=== PATIENT | female | born 1960 | race Caucasian/White ===

== ENCOUNTER 2019-06-13 17:24 | Observation (INO) | payer BC, SELFPAY ==
[2019-06-12 16:31] VITALS: BMI 25.8
[2019-06-13] VITALS (14 sets, daily range): BP systolic 111–146; BP diastolic 69–89; PULSE 70–103; RESP 16–23; TEMP 36.1–36.9; O2SAT 92–97
[2019-06-13] MEDS: sodium chloride 0.9% 1,000 ML 100 ML IV (07:58)
--- NOTE | 2019-06-13 08:26 | ANES.PREANES ---
Pre-Anesthetic Assessment Pre-Anesthetic Assessment: Height/Weight: Height 1.73 m Weight 77.111 kg Proposed Procedure: Operation Date: 06/13/19 09:05 Proposed Procedures p Laparoscopic Ventral Hernia Repair(Not Applicable) - Dylan Galan MD Social: Social History: Tobacco and No alcohol Exam: Pre-Anes Outpt Exam: alert, oriented x 3, clear to auscultation bilaterally and regular rate & rhythm Airway: Submandibular: WNL Cervical ROM: WNL MP: 1 Dentition: False History/ROS: No significant history except as noted Pulmonary: Pulmonary: COPD GI: GI: GERD and Hiatus hernia Anesthetic Plan: ASA status: III Anesthesia: Anesthesia Evaluation and General Risk of > 500 ml blood loss (7ml/kg in children): No Meds/Allergies Current Medications: Current Medications Generic Name Dose Route Start Last Admin Trade Name Freq PRN Reason Stop Dose Admin Sodium Chloride 1,000 mls @ 100 m ls/hr 06/13/19 06:30 06/13/19 07:58 Sodium Chloride 0.9% IV 06/14/19 06:29 100 mls/hr .Q10H DIANA Administration PFSH Anesthesia PFSH: Medical History (Updated 06/13/19 @ 08:26 by Benigno Segura MD) Cholelith (Acute) Colon polyp (Acute) GERD (gastroesophageal reflux disease) (Acute) Hemorrhoids (Acute) Hiatal hernia (Acute) Periumbilical hernia (Acute) Ventral hernia (Acute) Surgical History (Updated 06/13/19 @ 08:26 by Benigno Segura MD) Hx of cholecystectomy (Acute) Hx of hemorrhoidectomy (Acute) Family History (Updated 06/12/19 @ 16:25 by Nadege Grey) Other No pertinent family history Social History (Updated 06/12/19 @ 16:25 by Nadege Grey) Smoking and tobacco status: current every day smoker Data Anesthesia Cardiac Studies: No Data to Display
--- NOTE | 2019-06-13 08:52 | P.HP_ITS ---
Providers/Chief Complaint Chief Complaint: Lap Ventral Hernia Repair History of Present Illness Romana Vaz is a 58 year old female , patient presented with symptomatic ventral incisional hernia, that would require surgical intervention Review of Systems Const: Reports: body aches; Denies: fever, chills, change in weight, fatigue or malaise Card: Denies: chest pain, palpitations, lightheadedness or shortness of breath on exertion Resp: Denies: shortness of breath or wheezing GI: Denies: abdominal pain, nausea, vomiting, vomiting blood, diarrhea, constipation, bloating, blood in stool or black tarry stool : Denies: difficulty urinating Musc: Denies: back pain Skin/Breast: Reports: skin tenderness Neuro: Denies: frequent falls Psych: Denies: anxiety or depression Endo: Denies: excessive urination Medications/Allergies Home Medications Medication Instructions Recorded Confirmed Last Taken Type esomeprazole magnesium [Nexium] 20 mg PO DAILY 06/12/19 06/12/19 06/13/19 06:00 History Allergies Allergy/AdvReac Type Severity Reaction Status Date / Time sulfamethoxazole Allergy Mild ADR-Agitate Verified 06/12/19 16:29 d valdecoxib Allergy Mild ADR-Agitate Verified 06/12/19 16:29 d PFSH Acute PFSH: Statuses (acute, chronic, etc) shown below reflect problem list status as previously entered and may not be historically accurate Medical History Cholelith (Acute) Colon polyp (Acute) GERD (gastroesophageal reflux disease) (Acute) Hemorrhoids (Acute) Hiatal hernia (Acute) Periumbilical hernia (Acute) Ventral hernia (Acute) Surgical History Hx of cholecystectomy (Acute) Hx of hemorrhoidectomy (Acute) Family History Other No pertinent family history Social History Smoking and tobacco status: current every day smoker Vitals/I&O/Wt Last Vital Signs Temp 97.9 F 06/13/19 08:18 Pulse 91 06/13/19 08:18 Resp 20 H 06/13/19 08:18 BP 146/89 06/13/19 08:18 Pulse Ox 97 06/13/19 08:18 Weight last 48 hrs Weight 170 lb Physical Exam Const: COMMON NORMALS: no apparent distress and oriented x3 GENERAL APPEARANCE: cooperative ORIENTATION/CONSCIOUSNESS: Yes awake, Yes oriented to person, Yes oriented to place and Yes oriented to time HENMT: COMMON NORMALS: normocephalic HEAD & SCALP: normocephalic Eye: COMMON NORMALS: PERRL and no scleral icterus PUPIL: Yes PERRL Lymph: LYMPHATIC: no lymphadenopathy noted Chest: COMMONS NORMALS: inspection of chest normal Resp: COMMON NORMALS: normal respiratory effort and clear to auscultation bilaterally AUSCULTATION: clear to auscultation bilaterally Cardio: COMMON NORMALS: S1 normal heart sound and S2 normal heart sound; negative for no murmurs HEART SOUNDS: S1 normal and S2 normal GI: COMMON NORMALS: soft to palpation; negative for no hepatosplenomegaly INSPECTION: Yes normal to inspection PALPATION: Yes soft, No firm, No tender, No guarding, No rigid, No no hepatosplenomegaly and Yes other (Mid line ventral incisional hernia without complications) Neuro: COMMON NORMALS: oriented x3 SENSORIUM/ORIENTATION: Yes oriented to person, Yes oriented to place and Yes oriented to time Psych: COMMON NORMALS: mental status grossly normal Skin: COMMON NORMALS: no rashes or lesions noted GENERAL SKIN EXAM: no rashes or lesions noted A&P Assessment and plan (1) Ventral hernia: After thorough history physical examination and reviewing the chart and images my personal interpretation, I counseled the patient for laparoscopic possible open ventral incisional hernia repair with mesh placement, indications risks benefits and alternatives were all discussed with the patient, and she did agree to proceed. Informed consent per chart Status: Acute Code(s): K43.9 - Ventral hernia without obstruction or gangrene Attestations Medical Necessity Statement*: Outpatient in the bed Coding Level of Care Code Established Pt Acute Manufacturing Clerk for Chg Fwd Patient Type Established History Problem Focused Exam Problem Focused Medical Decision Making Moderate Complexity Diagnoses Ventral hernia K43.9 Time Spent (min) 10
[2019-06-13] MEDS: sodium chloride 0.9% 1,000 ML 30 ML IV (10:00)
[2019-06-13] MEDS: lidocaine 2% INJ 20 mL INJECTION ×2 (10:26→19:31)
--- NOTE | 2019-06-13 11:22 | SUR.OPER ---
1034 - Pt's (Jose) notified of surgery start via his cell phone
--- NOTE | 2019-06-13 12:20 | SUR.OPER ---
[id number] - Attempted to update Jose on surgery progress and pt status via his cell phone. Unable to reach him at this time
--- NOTE | 2019-06-13 12:43 | PM.OP ---
Operative Report Post-Operative Note: Date of procedure: 06/14/19 Preop Diagnosis: Ventral incisional hernia Post-op diagnosis: other (Lebanese cheese defect measures total of about 12 cm x 5) Procedure Done: Laparoscopic extensive intra-abdominal adhesio lysis laparoscopic ventral incisional hernia repair with mesh placement Implants: Proceed mesh 15 x 20 cm Specimens removed/disposition: None Surgeon: Dylan Galan Anesthesia: general and other (CINTIA Atkins) Estimated blood loss (mL): 20 Complications: No immediate complications Condition: stable Disposition: same day Operative Report: Brief History: This is a pleasant 58 years old female patient has been having symptomatic ventral incisional hernia, patient was seen and evaluated in my office and was counseled for laparoscopic possible open ventral incisional hernia repair with mesh placement. Informed consent per chart Procedure: Patient was brought to the operating room after appropriate preoperative identification at the holding area.Was placed in supine position, Oliveira catheter was administered by circulating nurse revealing clear urine.General endotracheal anesthesia was administered the patient was intubated without incident. both arms was tucked. Time-out was done verifying the patient's name/date of /planned procedure and destination after the procedure, all were in agreement. SCDs confirmed to be functioning, preoperative antibiotics administered per protocol, and beta dave protocol was confirmed, appropriate positioning of the patient was done . Patient was secured appropriately to the table and all pressure points were padded Prep and drape of the abdomen was done under the usual sterile technique. After Injection of local anesthetic lidocaine 2% An incision was made in the left upper subcostal margin along the left anterior axillary line of the abdomen , 5 mm Opti-Vu trocar was used with a 0 scope 5 mm under direct visualization safe entrance to the abdomen was achieved and all through abdominal wall layers. The abdomen was insufflated to 15 mmHg at 40 L/m , abdomen was surveyed showing no signs of injuries yet there were extensive intra-abdominal adhesions towards the midline, followed by placement of 11 mm trocar under direct visualization about a handbreadth inferior to first trocar, followed by another 5 mm trocar inserted 1 handbreadth inferior to the 10 mm trocar. Using a standard laparoscopic scissors connected to heat cautery omental adhesions were carefully dissected out from the hernia defect. .Hernia contents in the form of omentum were incarcerated in multiple Lebanese cheese defects applying the mid midline portion of the colon, I spent more than one hour of the operative time taking adhesions down between sharp and blunt dissection with appropriate hemostasis, there was some oozing from some of the omental tissues I had to apply an Endoloo PDS, and I elected to place a figure of eight 2-0 silk sutures x2 to invaginate it since it was in the close proximity to the colon At this point measurement of the fascial defects(midline Lebanese cheese appearance with multiple defects) were estimated to be 12 x 5 cm centimeters in total length,At that point a Proceed mesh system 15 cm x 20cm in diameter is decided upon, having about 5 cm overlap from the fascial defect edge. Application of PDS sutures at the 4 portions of the mesh was done after appropriate orientation ex vivo, then the mesh was rolled then introduced through the 11 mm trocar, making sure that the smooth service faces the bowel and the rough surface faces abdominal wall, fascial closure device was introduced after creating 4 skin stab incisions using 11 blade knife, matching site of exit of PDS sutures, fascial closure device was introduced to grab onto the 2 limbs of PDS sutures from each pole of the mesh and grabbed and tied down ex vivo, defect was at the center of the mesh. At this point the mesh was adjusted found to be in a good position with good overlap,no trans-fascial sutures were used at this point, an absorbable Tack fixation device, performing a double crown technique to secure the mesh in place was used, as the size of the mesh was large , elected to add an additional 5 mm trocar the right side of the abdomen,was placed under direct visualization,to help add additional absorbable tack to secure the mesh appropriately. Hemostasis was secured, there was no evidence of bleeding, the mesh appears to be in good position and well spread without crumbling. Final survey laparoscopy was done showing no injuries. Bilateral TAP (transversus abdominous plain peripheral nerve block )block using Exparel 20 mL Exparel 40 ml Normal saline 20 ml bupivacaine 0.25%. Closure of the 11 mm trocar site, using interrupted Vicryl sutures under direct visualization.Trocars were then taken out under direct visualization after gas was allowed to escape., followed by subcuticular closure for all trocar sites, including the fascial closure device site,Dermabond was applied. Patient tolerated the procedure well, and an abdominal binder was then wrapped around the patient's abdomen.The patient was then extubated and taken to the recovery room in stable condition Oliveira catheter was taken out at the end of the procedure without complication All count of instruments and sponges were completed I Was present for the whole entire procedure Coding Level of Care Code Acute National Van Owner Operator for Padilla Patel
[2019-06-13] MEDS: fentaNYL 50 mcg/mL INJ 2mL IVP ×2 (13:05→13:10)
--- NOTE | 2019-06-13 13:14 | SUR.PHASEI ---
1314 PATIENT RATES PAIN 6/10. PATIENT NOTED TO BE RESTING WITH EYES CLOSED, SNORING. EASILY AROUSED.
--- NOTE | 2019-06-13 13:32 | SUR.PHASEI ---
1327 PATIENT TO OPS VIA [facility]. NO DISTRESS. ABDOMINAL BINDER IN PLACE. A/OX3.
--- NOTE | 2019-06-13 13:46 | ANE.PACU ---
 Inpatient post-anesthesia follow up: Airway intact: Yes Vital signs: Temperature 97.5 F Pulse Rate [Radial ] 78 Respiratory Rate 16 Blood Pressure [Le ft Arm] 123/73 Pulse Oximetry 93 Oxygen Delivery Me thod Nasal Cannula Oxygen Flow Rate 3 Fraction of Inspir ed Oxygen Hydration adequate: Yes Nausea and vomiting: No Mental status: Baseline
[2019-06-13] MEDS: HYDROcodone-acetaminophen 5-325 mg Tablet 1 TAB PO ×2 (15:04→21:01)
--- NOTE | 2019-06-13 15:25 | SUR.PHASEII ---
PT'S GOAL WAS TO BE DISCHARGED TO HOME. [place] 5/325MG GIVEN PO. PT ATTEMPTED TO SIT ON SIDE OF BED WITH ASSISTANCE, BUT WAS UNABLE TO DUE TO PAIN. PT NOW BEING TRANSFERRED TO FLOOR FOR PAIN CONTROL.
--- NOTE | 2019-06-13 17:11 | SUR.PHASEII ---
PT TRANSFERRED TO ROOM 111 [facility]IA [facility], THEN PT AMB FROM [facility] INTO HER ROOM AND TO BED WITH ASSIST. CARE TURNED OVER TO ALEX PAREDES RN
[2019-06-13] MEDS: famotidine 20 mg/2 mL INJ IVP (19:32)
[2019-06-13 21:34] LABS: Glucose Point of Care 162 mg/dL (70-110)
[2019-06-14] VITALS (9 sets, daily range): BP systolic 125–166; BP diastolic 71–90; PULSE 70–101; RESP 17–19; TEMP 36.8–37.1; O2SAT 91–96
[2019-06-14] MEDS: HYDROcodone-acetaminophen 5-325 mg Tablet 1 TAB PO ×2 (03:51→12:26)
[2019-06-14] MEDS: famotidine 20 mg/2 mL INJ IVP (04:49)
--- NOTE | 2019-06-14 06:38 | P.SS_ITS ---
Short Stay Summary Providers Date of Admit/Discharge: 06/14/19 Attending Provider: Dylan Galan MD Primary Care Provider: Dylan Galan MD Chief Complaint: Lap Ventral Hernia Repair HPI History of Present Illness Romana Vaz is a 58 year old female Review of Systems Const: Denies: fever, chills, body aches or malaise Card: Denies: chest pain Resp: Denies: shortness of breath GI: Reports: other (Soreness at the incision sites) Neuro: Denies: headache Psych: Denies: anxiety or depression Home Meds/Allergies Home Medications and Allergies Home Medications Medication Instructions Recorded Confirmed Type esomeprazole magnesium [Nexium] 20 mg PO DAILY 06/12/19 06/12/19 History Allergies Allergy/AdvReac Type Severity Reaction Status Date / Time sulfamethoxazole Allergy Mild ADR-Agitate Verified 06/12/19 16:29 d valdecoxib Allergy Mild ADR-Agitate Verified 06/12/19 16:29 d PFSH Acute PFSH: Statuses (acute, chronic, etc) shown below reflect problem list status as previously entered and may not be historically accurate Medical History Cholelith (Acute) Colon polyp (Acute) GERD (gastroesophageal reflux disease) (Acute) Hemorrhoids (Acute) Hiatal hernia (Acute) Periumbilical hernia (Acute) Ventral hernia (Acute) Surgical History Hx of cholecystectomy (Acute) Hx of hemorrhoidectomy (Acute) Family History Other No pertinent family history Social History Smoking and tobacco status: current every day smoker Vitals/I&O/Wt Last Vital Signs Temp 98.3 F 06/14/19 05:40 Pulse 72 06/14/19 05:40 Resp 19 H 06/14/19 05:40 BP 132/80 06/14/19 05:40 Pulse Ox 96 06/14/19 05:40 06/13/19 06/13/19 06/14/19 14:59 22:59 06:59 Intake Total 1050 / 1050 1560 / 2610 Output Total 125 / 125 400 / 525 Balance 925 / 925 1160 / 2085 Weight last 48 hrs Weight 174 lb 14.4 oz Weight 170 lb Physical Exam Const: COMMON NORMALS: no apparent distress and oriented x3 GENERAL APPEARANCE: cooperative ORIENTATION/CONSCIOUSNESS: Yes awake, Yes oriented to person, Yes oriented to place and Yes oriented to time Eye: COMMON NORMALS: PERRL and no scleral icterus PUPIL: Yes PERRL Chest: COMMONS NORMALS: inspection of chest normal Resp: COMMON NORMALS: normal respiratory effort and clear to auscultation bilaterally AUSCULTATION: clear to auscultation bilaterally Cardio: COMMON NORMALS: S1 normal heart sound and S2 normal heart sound; negative for no murmurs HEART SOUNDS: S1 normal and S2 normal GI: COMMON NORMALS: soft to palpation; negative for no hepatosplenomegaly INSPECTION: Yes normal to inspection PALPATION: Yes soft, No firm, No tender, No guarding, No rigid, No no hepatosplenomegaly and Yes other (Incisions are clean dry and intact) Neuro: COMMON NORMALS: oriented x3 SENSORIUM/ORIENTATION: Yes oriented to person, Yes oriented to place and Yes oriented to time Skin: COMMON NORMALS: no rashes or lesions noted GENERAL SKIN EXAM: no rashes or lesions noted Urinary Catheter Management^: Oliveira: Cath Placed During This Visit: no SSS Data Data Completed and Pending: Pending at discharge Category Date Time Status ES surgery / GI i mages Routine Exams 06/13/19 09:23 Taken Diagnoses at Discharge Discharge Diagnosis (1) Ventral hernia: Status: Resolved Problem details: Return to surgery office in 10 days Abdominal binder for comfort Discharge Plan Discharge Patient Disposition: Home, Self-Care Condition: Stable Prescriptions: [place] 5-325 mg tablet 1 tab PO Q6H PRN (Reason: pain) Qty: 28 RF: 0 Continued esomeprazole magnesium [Nexium] 20 mg Capsule,Delayed Release(Dr/Ec) 20 mg PO DAILY RF: 0 Discharge Orders: Discharge Order (Routine); Ordered 06/14/19 Ordered By: Dylan Galan Referrals: Paulette Parr MD [Family Provider] - 07/17/19 3:15 pm Dylan Galan MD [Primary Care Provider] - 06/26/19 9:45 am Discharge Diet: Advance as tolerated Patient Instructions: Hydrocodone/Acetaminophen (By mouth), Ventral Hernia (DC) Activity Restrictions/Additional Instructions: 1. Patient can shower after 48 hours from surgery 2. Remove Dermabond 7 to 10 days after surgery 3. Advance diet as tolerated 4. Do lift more than 5 pounds first 2 weeks after surgery and not more than 25 pounds 6 to 8 weeks after surgery. 5. Do not operate heavy machinery or drive while using pain medications. 6. Advised to return to ER or contact my office if there are any signs of infection like, increasing pain, fevers, chills, redness or drainage of pus. 7. Abdominal binder for comfort Discharge Date/Time: 06/14/19 13:30 Attestations Medical Necessity Statement*: Outpatient in a bed. Time Spent in Patient Care*: less than 30 min Quality Metrics Clinical Quality Measures: During this hospital stay, did patient experience: None Coding Level of Care Code Acute Receiving Room Clerk for Padilla Patel Diagnoses Ventral hernia K43.9
[2019-06-14 07:02] LABS: Glucose Point of Care 137 mg/dL (70-110)
--- NOTE | 2019-06-14 07:34 | PC.RESP ---
Patient up and walking around. No respiratory distress noted at this time. vitals taken.
--- NOTE | 2019-06-14 13:22 | ANE.PACU ---
 Inpatient post-anesthesia follow up: Airway intact: Yes Vital signs: Temperature 98.8 F Pulse Rate [Bilate ral] 72 Pulse Rate [Radial ] 78 Pulse Rate 101 Respiratory Rate 18 Blood Pressure [Le ft Arm] 155/83 Pulse Oximetry 92 Oxygen Delivery Me thod Room Air Oxygen Flow Rate 2 Fraction of Inspir ed Oxygen Hydration adequate: Yes Nausea and vomiting: No Mental status: Baseline
--- NOTE | 2019-06-14 14:02 | PC.CHAP ---
Pastoral Care Encounter/Spiritual Assessment Type of Contact [] Declined underwater hunter visit [] Patient/Family/Request visit [] Outpatient visit [] Follow-up visit [] Physician referral [] Code/Alert [x] Routine visit [] Staff referral [] Actively dying [] Patient sleeping [] Family support [] [] Out of room [] Palliative care [] [] Receiving care in room [] Pre-surgical visit [] Trauma [] Long length of stay [] ICU visit [] Other: Relational/Emotional Strength [x] Patient feels connected with others/family/visitors/staff [] Distress [] Loneliness/isolation [] Abandonment Spirituality of Patient [x] Person of Jeanna [x] Attends Alevism of their Jeanna []x Believes in Prayer [] Reads Bible or Church materials [] There are Spiritual issues to be addressed Awning Erector Interventions [x] Prayer [x] Active listening [x] Non-anxious presence [x] Spiritual/emotional support [] Crisis/trauma care [] Spiritual counseling [] Bereavement support [] Provided bereavement packet [] Provided Bible/devotional materials [] Provided toy/stuffed animal, coloring book to patient or family member [] Completed spiritual assessment [] Provided Communion [] Anointing/[place] [] Salvation [] Other: Impact on Illness or Injury [] Angry [] Fearful [] Anxious [] Often cries [] Exhaustion [] Unable to work [] Unable to attend yazdanism [] Unable to walk/stand [] Unable to read [] Unable to drive [] Unable to eat/drink [] Unable to sleep [] Unable to be with family [] Other: Summary getting ready to go home Time spent with patient 6 min
== END 2019-06-14 13:30 | disposition home or self-care (01) ==
LOC: CSU 17:26 → MEDSURG 17:48
PROVIDERS: Admitting Provider Surgery; Family Provider Internal Medicine; PCP Surgery; Visit Provider Surgery
PROC: 0WQF4ZZ Repair Abdominal Wall, Percutaneous Endoscopic Approach (ICD-10-PCS; CPT 49654; principal; 2019-06-13 09:00)
PROC: (CPT 49654; 2019-06-13 09:00)
DX: K43.9 Ventral hernia without obstruction or gangrene (principal); K66.0 Peritoneal adhesions (postprocedural) (postinfection); F17.210 Nicotine dependence, cigarettes, uncomplicated; K21.9 Gastro-esophageal reflux disease without esophagitis
CPT/HCPCS: 49654; 36416; 51702; 82962; 96360; 96361; 96365; C9290; G0378; J0131; J0690; J1100; J2001; J2405; J2704; J2710; J3010; J3490; J7030

== ENCOUNTER 2021-01-05 05:00 | Outpatient (CLI) | payer OTHER, SELFPAY ==
[2021-01-05 08:12] VITALS: BP 134/84; PULSE 69; RESP 18; TEMP 36.8; O2SAT 94; BMI 26.6
[2021-01-05 09:55] VITALS: BP 136/79; PULSE 97; RESP 18; TEMP 36.9; O2SAT 97
--- NOTE | 2021-01-05 09:55 | PC.NURSE ---
Infusion complete, IV DC'd cath intact, bleeding controlled with cotton ball and coban,
--- NOTE | 2021-01-05 10:55 | PC.NURSE ---
DC'd to home, ambulatory to POV with zero difficulties
--- NOTE | 2021-01-09 14:09 | DCPLANNER ---
manager department had message that patient received the monoclonal antibody infusion. manager department called to check on patient after getting the infusion. manager department spoke with patient, she stated that before the infusion, she had body aches, a headache, was really tired, weak, her legs hurt really bad. Patient stated that after the infusion, patient had to be put on oxygen, but she is doing better. Patient stated that she has not had a fever, just really tired. Patient stated that she does get tired easier, she does not have a headache, she still has a little cough. Patient stated that overall she is feeling better.
== END 2021-01-05 05:01 | disposition home or self-care (01) ==
PROVIDERS: Family Provider Internal Medicine; PCP Nurse Practitioner Family; Visit Provider Internal Medicine
DX: U07.1 COVID-19 (principal)
CPT/HCPCS: 96365

== ENCOUNTER 2021-01-05 16:24 | Emergency (ER) | payer OTHER, SELFPAY ==
[2021-01-05 16:45] VITALS: BP 146/82; PULSE 101; RESP 19; TEMP 36.9; O2SAT 92; BMI 26.6
--- NOTE | 2021-01-05 17:17 | PC.NURSE ---
pt was 89-90% on room air after exerting herself and walking back to her room. 2L of O2 applied via nasal cannula
--- NOTE | 2021-01-05 17:17 | W.ED.COVID ---
HPI - COVID General: Chief Complaint: COVID symptoms Stated Complaint: sob post covid infusion today Time Seen by Provider: 01/05/21 17:17 Triage information: Has fever, cough or shortness of breath. No known COVID + exposure last 14 days History of Present Illness: HPI Narrative: 60-year-old female comes in today with complaints of nasal drainage and cough. Patient started feeling poorly on Wednesday and was tested for COVID-19. Patient was diagnosed with COVID-19 and was started on dexamethasone, and budesonide nebulizer treatments. Patient does have a history of COPD. Patient got monoclonal antibody therapy this morning. Patient reports some anxiety with her increased difficulty with shortness of breath. Patient denies any chest pain or other symptoms. COVID 19 common symptoms: positive productive cough, dyspnea and nasal congestion COVID Results: No Data to Display Review of Systems General: Reports: 10 or more systems reviewed and unremarkable except in HPI and below ENMT: Reports: nasal congestion Resp: Reports: dyspnea and productive cough PFS ED PFSH: Medical History (Updated 01/05/21 @ 18:48 by SIVAKUMAR Benítez) Cholelith Colon polyp GERD (gastroesophageal reflux disease) Hemorrhoids Hiatal hernia Periumbilical hernia Ventral hernia Return to surgery office in 10 days Abdominal binder for comfort Surgical History History of ventral hernia repair Hx of cholecystectomy Hx of hemorrhoidectomy Family History Other Cancer Diabetes Heart disease No pertinent family history Denies family history of Anesthesia complication Bleeding disorder Social History Smoking and tobacco status: current every day smoker Alcohol intake: never Household members: spouse Marital status: Current occupational status: employed Physical Exam Const: COMMON NORMALS: no acute distress and patient oriented x3 GENERAL APPEARANCE: cooperative HENMT: COMMON NORMALS: normocephalic, TM's normal bilaterally and Normal external nose present HEAD & SCALP: normal to inspection and normocephalic NOSE: Normal external nose present TYMPANIC MEMBRANE: TM's normal bilaterally MOUTH: Normal oral and palatal mucosa present THROAT: postnasal drainage Eye: GENERAL EYE: appearance normal, both eyes and all related structures Neck/C-Spine: COMMON NORMALS: full ROM Lymph: LYMPHATIC: no lymphadenopathy noted Chest: COMMONS NORMALS: normal inspection of the chest Resp: COMMON NORMALS: normal respiratory effort EFFORT & INSPECTION: Yes able to speak in complete sentences AUSCULTATION: wheezes Cardio: COMMON NORMALS: regular rate and regular rhythm RATE: regular rate RHYTHM: regular rhythm GI: COMMON NORMALS: non-tender Extremity: COMMON NORMALS: normal to inspection Neuro: COMMON NORMALS: patient oriented x3 and moves all extremities Psych: COMMON NORMALS: mental status grossly normal and cooperative Skin: COMMON NORMALS: no rashes or lesions noted GENERAL SKIN EXAM: no rashes or lesions noted Course Vital Signs: Vital signs: Vital Signs Temperature 98.4 F 01/05/21 16:45 Pulse Rate 97 01/05/21 18:37 Respiratory Rate 17 01/05/21 18:27 Blood Pressure 141/81 01/05/21 18:16 Pulse Oximetry 95 01/05/21 18:27 MDM - COVID MDM Narrative: Medical decision making narrative: 60-year-old female comes in today for complaints of shortness of breath, cough, and wheezing. Patient was diagnosed with COVID-19 on Wednesday. Patient reports she has lots of nasal drainage. Lungs are tight with wheezing throughout. Skin is warm and dry. No edema is noted in the extremities. Differential diagnosis includes respiratory failure, COVID-19, pneumonia. Chest x-ray had no definitive opacities or infiltrates. CBC had a white count 10,000, D-dimer is normal, CMP was unremarkable. Patient's oxygen was 88% on room air. Patient had good results with oxygen going to 93 to 94% on 2 L nasal cannula. I feel patient is in need of having home O2 at this time while she is ill. DME request risks placed for home oxygen. Patient was agreeable to plan. We will also continue patient on some ipratropium with albuterol nebulizer treatments 4 times a day. Patient was also given albuterol inhaler to use as needed. Patient should continue with routine medications otherwise. Patient reported understanding of care plan and need for follow-up or return. Lab Data: Labs: Lab Results 01/05/21 01/05/21 01/05/21 Range/Units 18:00 18:00 18:00 WBC 10.6 H (4.0-10.0) 10^3/ uL RBC 5.94 H (4.1-5.3) 10^6/u L Hgb 16.9 H (11.5-15.3) g/dL Hct 51.1 H (37.0-47.0) % MCV 86.0 (81-99) fL MCH 28.5 (28.0-34.0) pg MCHC 33.1 (30.0-36.0) g/dL RDW 13.4 (12.1-15.1) % Plt Count 270 (130-400) 10^3/c mm MPV 10.5 H (7.4-10.4) fL Neut % (Auto) 80.8 % Lymph % (Auto) 8.8 % Page % (Auto) 9.5 % Eos % (Auto) 0.1 % Baso % (Auto) 0.3 % Neut # (Auto) 8.55 H (1.8-7.7) 10^3/u L Lymph # (Auto) 0.9 (0.8-4.8) 10^3/u L [place] # (Auto) 1.0 H (0.2-0.9) 10^3/u L Eos # (Auto) 0.0 (0.0-0.8) 10^3/u L Baso # (Auto) 0.0 (0.0-0.1) 10^3/u L Nucleated RBC % (a uto) 0 % Nucleated RBCs # 0.0 /100WBC D-Dimer 0.38 (0-0.59) ug/mIFE U Sodium 137 (136-145) mmol/L Potassium 4.0 (3.5-5.1) mmol/L Chloride 99 (98-107) mmol/L Carbon Dioxide 23 (22-29) mmol/L Anion Gap 19.0 (5-19) BUN 12 (6-20) mg/dL Creatinine 0.7 (0.5-0.9) mg/dL GFR Calculation 85.6 L (90-130) mL/min Glucose 87 (65-115) mg/dL Calculated Osmolal ity 283 L (285-295) mOsm/k g Calcium 8.5 (8.5-10.5) mg/dL Total Bilirubin 0.3 (0.15-1.2) mg/dL AST 54 H (0-32) U/L ALT 62 H (0-33) U/L Alkaline Phosphata se 77 (35-105) IU/L Creatine Kinase 42 (26-192) U/L C-Reactive Protein 2.6 (0.0-4.9) mg/L Total Protein 6.8 (6.6-8.7) g/dL Albumin 4.2 (3.5-5.2) g/dL Globulin 2.6 (1.3-4.6) g/dL Procalcitonin 0.05 (0-0.5) ng/mL COVID Results: No Data to Display Discharge Plan Discharge Patient Disposition: Home Clinical Impression: COVID-19, Hypoxia Condition: Stable Prescriptions: New ipratropium-albuterol 0.5 mg-3 mg(2.5 mg base)/3 mL solution for nebulization 3 ml inhalation QID Qty: 90 RF: 0 No Action acetaminophen [Tylenol] 325 mg capsule 650 mg PO Q6H PRNRF: 0 esomeprazole magnesium [Nexium] 20 mg Capsule,Delayed Release(Dr/Ec) 20 mg PO DAILY RF: 0 [place] 5-325 mg tablet 1 tab PO Q6H PRN (Reason: pain) Qty: 28 RF: 0 Discharge Orders: Discharge ED (Routine); Ordered 01/05/21 Ordered By: Ajay Calles Other Ambulatory Orders: DME: Oxygen (Order) Location: None Selected Ordered By: Ajya Calles Referrals: Jose Swann NP [Primary Care Provider] - Discharge Diet: Usual diet Discharge Activity: Increase activity as tolerated Patient Instructions: Viral Pneumonia (ED), Opioid Safety Activity Restrictions/Additional Instructions: Use nebulizer treatment 4 times a day. Use albuterol inhaler 2 puffs every 4 hours as needed for respiratory difficulty, wheezing, or cough. Continue with routine medications as directed. Follow-up with primary care as needed. Return to the emergency room for worsening symptoms or new concerns. Coding Level of Care Code ED Superintendent [employer] for [facility] Exam Comprehensive
--- NOTE | 2021-01-05 17:18 | XRR_ITS ---
PROCEDURE INFORMATION: Exam: XR Chest Exam date and time: 01/05/2021 5:18 PM Age: 60 years old Clinical indication: Shortness of breath; Patient HX: Hypoxia. Covid +; Additional info: Covid 19, low pulse ox TECHNIQUE: Imaging protocol: XR of the chest. Views: 1 view. COMPARISON: CR Chest 2 views* [id number] 05/13/2017 11:06 AM FINDINGS: Lungs: Unremarkable. No consolidation. Pleural spaces: Unremarkable. No pleural effusion. No pneumothorax. Heart/Mediastinum: Unremarkable. No cardiomegaly. Bones/joints: Unremarkable. XR/XR chest 1V portable [id number] IMPRESSION: No acute findings.
[2021-01-05 17:51] VITALS: BP 148/92; PULSE 121; RESP 18; O2SAT 92
[2021-01-05 18:07] LABS: Basophils % 0.3 %; Eosinophils % 0.1 %; Hematocrit 51.1 % (37.0-47.0); Hemoglobin 16.9 g/dL (11.5-15.3); Lymphocytes # 0.9 10^3/uL (0.8-4.8); Lymphocytes % 8.8 %; Mean Corpuscular HGB Conc 33.1 g/dL (30.0-36.0); Mean Corpuscular Hemoglobin 28.5 pg (28.0-34.0); Mean Platelet Volume 10.5 fL (7.4-10.4); Monocytes % 9.5 %; Neutrophils # 8.55 10^3/uL (1.8-7.7); Neutrophils % 80.8 %; Nucleated Red Blood Cells % 0 %; Platelet Count 270 10^3/cmm (130-400); Red Blood Count 5.94 10^6/uL (4.1-5.3); Red Cell Distribution Width 13.4 % (12.1-15.1); White Blood Count 10.6 10^3/uL (4.0-10.0)
[2021-01-05] MEDS: sodium chloride 0.9% 1,000 ML 999 ML IV (18:10)
[2021-01-05] MEDS: dexamethasone 10 mg/mL INJ 6 MG IVP (18:11)
[2021-01-05] MEDS: ondansetron 2 mg/ML SDV 2 mL 4 MG IVP (18:12)
[2021-01-05] MEDS: diphenhydrAMINE 50 mg/mL SDV 1mL 25 MG IVP (18:14)
[2021-01-05 18:16] VITALS: BP 141/81; PULSE 91; RESP 18; O2SAT 96; O2SAT 97
[2021-01-05] MEDS: albuterol 8 gm MDI 4 PUFF INHALATION (18:26)
[2021-01-05 18:27] VITALS: PULSE 99; RESP 17; O2SAT 95
[2021-01-05 18:32] LABS: D Dimer 0.38 ug/mIFEU (0-0.59)
[2021-01-05 18:37] VITALS: PULSE 97
[2021-01-05 18:38] LABS: Alanine Aminotransferase 62 U/L (0-33); Albumin Level 4.2 g/dL (3.5-5.2); Alkaline Phosphatase 77 IU/L (35-105); Aspartate Amino Transferase 54 U/L (0-32); Blood Urea Nitrogen 12 mg/dL (6-20); C Reactive Protein 2.6 mg/L (0.0-4.9); Calcium 8.5 mg/dL (8.5-10.5); Carbon Dioxide 23 mmol/L (22-29); Chloride 99 mmol/L (98-107); Creatine Phosphokinase 42 U/L (26-192); Globulin 2.6 g/dL (1.3-4.6); Glomerular Filtration Rate 85.6 mL/min (90-130); Glucose 87 mg/dL (65-115); Osmolality Calculated 283 mOsm/kg (285-295); Sodium 137 mmol/L (136-145); Total Bilirubin 0.3 mg/dL (0.15-1.2); Total Protein 6.8 g/dL (6.6-8.7)
[2021-01-05 18:44] LABS: Procalcitonin 0.05 ng/mL (0-0.5)
[2021-01-05 19:45] VITALS: BP 127/96; PULSE 97; RESP 24; O2SAT 92
== END 2021-01-05 19:40 | disposition home or self-care (01) ==
PROVIDERS: Emergency Provider Nurse Practitioner Family; PCP Nurse Practitioner Family
DX: U07.1 COVID-19 (principal); R09.02 Hypoxemia; F17.210 Nicotine dependence, cigarettes, uncomplicated
CPT/HCPCS: 71045; 80053; 82550; 84145; 85025; 85378; 86140; 94640; 96361; 96374; 96375; 99284; J1100; J1200; J2405; J3535; J7030

== ENCOUNTER 2021-06-18 08:44 | Outpatient (CLI) | payer OTHER, SELFPAY ==
--- NOTE | 2021-06-18 08:58 | MM_ITS ---
WS: [id number] SCREENING DIGITAL MAMMOGRAM WITH CAD HISTORY: SCREENING COMPARISON: 06/16/2017 and 11/23/2008 Bilateral CC and MLO views submitted. Computer aided detection analyzed. Breast composition: There are scattered areas of fibroglandular density. Irregular asymmetry with shira cifications measures 7 x 8 mm in the upper outer quadrant of the LEFT breast, posterior. This will ne ed further evaluation. There are a few additional scattered asymmetries within each breast. The remai reta asymmetries are stable. Cluster of calcifications posterior to the LEFT nipple have been present since 2018. MM/[place] [id number] IMPRESSION: BI-RADS: 0-Incomplete: Need additional imaging evaluation FOLLOW UP: Need Additional Imaging LEFT breast: Spot compression views (CC and MLO). True ML. Ultrasound to follow if abnormality persists.
== END 2021-06-18 08:45 | disposition home or self-care (01) ==
LOC: RADSHAW 08:50
PROVIDERS: PCP Nurse Practitioner Family; Visit Provider Internal Medicine
DX: Z12.31 Encounter for screening mammogram for malignant neoplasm of breast (principal)
CPT/HCPCS: 77067

== ENCOUNTER 2021-07-01 10:29 | Outpatient (CLI) | payer OTHER, SELFPAY ==
--- NOTE | 2021-07-01 | US_ITS ---
WS: [id number] ADDITIONAL VIEWS LEFT MAMMOGRAM LEFT BREAST ULTRASOUND HISTORY: ABNORMAL MAMMOGRAM COMPARISON: 06/18/2021, 11/23/2008 and 06/16/2017 LEFT MAMMOGRAM: Spot compression views and true ML. Partially obscured nodule with central calcifications persists in the superior lateral LEFT breast at a posterior depth. Maximum diameter of 9 mm. This may been present but obscured on prior studies. This is a very ill-defined asymmetry. There is an additional 6 mm nodule mid breast at 2:00. LEFT BREAST ULTRASOUND 2-D and color Doppler imaging submitted. At 2:00 o'clock in the posterior LEFT breast, 3 cm from the nipple is a slightly lobulated hypoechoic mass measuring 9 x 6 x 6 mm. This does correspond in size and location and shape to the mammographic abnormality. No increased vascularity. There are a few additional smaller cysts in the upper outer quadrant. Ovoid cyst at 3:00 measures 6 x 3 x 4 mm and corresponds to the additional nodule seen within the LEFT breast. MM/[place] [id number] IMPRESSION: BI-RADS: 4-Suspicious Finding-Biopsy Should Be Considered FOLLOW UP: Biopsy Recommended Ultrasound-guided biopsy recommended of the lobulated hypoechoic mass in the LEFT breast at 2:00. Notified Paulette Parr MD at 07/01/2021 12:20 PM.Message left on answering service. Dictated By:Caroline Haley DO Signed By: Caroline Haley DO Signed Date/Time: 07/01/21 1222 DD/ 1212 EMILIANO
--- NOTE | 2021-07-01 10:35 | MM_ITS ---
WS: [id number] ADDITIONAL VIEWS LEFT MAMMOGRAM LEFT BREAST ULTRASOUND HISTORY: ABNORMAL MAMMOGRAM COMPARISON: 06/18/2021, 11/23/2008 and 06/16/2017 LEFT MAMMOGRAM: Spot compression views and true ML. Partially obscured nodule with central calcifications persists in the superior lateral LEFT breast at a posterior depth. Maximum diameter of 9 mm. This may been present but obscured on prior studies. Th is is a very ill-defined asymmetry. There is an additional 6 mm nodule mid breast at 2:00. LEFT BREAST ULTRASOUND 2-D and color Doppler imaging submitted. At 2:00 o'clock in the posterior LEFT breast, 3 cm from the nipple is a slightly lobulated hypoechoic mass measuring 9 x 6 x 6 mm. This does correspond in size and location and shape to the mammographic abnormality. No increased vascularity. There are a few additional smaller cysts in the upper outer quadrant. Ovoid cyst at 3:00 measures 6 x 3 x 4 mm and corresponds to the additional nodule seen within the LEFT breast. MM/[place] [id number] IMPRESSION: BI-RADS: 4-Suspicious Finding-Biopsy Should Be Considered FOLLOW UP: Biopsy Recommended Ultrasound-guided biopsy recommended of the lobulated hypoechoic mass in the LE FT breast at 2:00. Notified Paulette Parr MD at 07/01/2021 12:20 PM.Message left on answering service.
== END 2021-07-01 10:30 | disposition home or self-care (01) ==
PROVIDERS: PCP Internal Medicine; Visit Provider Internal Medicine
DX: R92.8 Other abnormal and inconclusive findings on diagnostic imaging of breast (principal); N63.21 Unspecified lump in the left breast, upper outer quadrant
CPT/HCPCS: 76642; 77065

== ENCOUNTER 2021-09-04 09:19 | Outpatient (CLI) | payer OTHER, SELFPAY ==
--- NOTE | 2021-09-04 10:12 | XR_ITS ---
WS: [email or web address] Exam: XR chest 2V* [id number] Date/Time of Exam: 09/04/2021 10:15 AM Reason For Exam: COUGH Comparison 01/05/2021. The lungs are fully inflated and clear. Normal cardiomediastinal silhouette. Large emphysematous bleb seen along the left heart border. No pleural effusions. Bony elements are intact. XR/XR chest 2V* [id number] IMPRESSION: 1. No acute cardiopulmonary finding. No change.
== END 2021-09-04 09:20 | disposition home or self-care (01) ==
PROVIDERS: PCP Internal Medicine; Visit Provider Nurse Practitioner Family
DX: R05.8 Other specified cough (principal)
CPT/HCPCS: 71046

== ENCOUNTER 2022-11-17 08:06 | Outpatient (CLI) | payer SELFPAY ==
--- NOTE | 2022-11-17 08:23 | XR_ITS ---
WS: [id number] XR chest 2V* [id number] REASON FOR EXAM: COUGH FINDINGS: The chest is unchanged compared to 09/04/2021. The heart and the mediastinum are within normal limits. Calcified granulomatous disease in both hemithoraces. Large anterior medial bullous formation in the left lung. No active pulmonary parenchymal or pleural disease is noted. Minimal degenerative spondylosis in the mid thoracic spine. XR/XR chest 2V* [id number] IMPRESSION: Stable abnormal chest with no acute abnormality.
== END 2022-11-17 08:07 | disposition home or self-care (01) ==
PROVIDERS: PCP Internal Medicine; Visit Provider Internal Medicine
DX: R05.9 Cough, unspecified (principal); R91.8 Other nonspecific abnormal finding of lung field
CPT/HCPCS: 71046

== ENCOUNTER 2022-12-29 14:39 | Outpatient (CLI) | payer SELFPAY ==
--- NOTE | 2022-12-29 14:48 | CT_ITS ---
WS: [id number] CT chest w con* [id number] HISTORY: ABNORMAL CHEST XRAY TECHNIQUE: Axial imaging performed through the thorax. Coronal and sagittal reformats are submitted. All CT scans at [facility] use at least one of these dose optimization techniques: automated exposure control; mA and/or kV adjustment per patient size (includes targeted exams where dose is mat ched to clinical indication); or iterative reconstruction. CONTRAST: Omnipaque 350; 100 mL IV. DLP: 266.33 mGy.cm COMPARISON: Chest radiograph 11/17/2022 Lungs and central airway: Hyperinflated lungs. Changes of emphysema. Bullous and bleb disease. There is a large bulla in the medial LEFT upper lobe. The bulla measures at least 8.1 x 10.7 cm. There is s light mass effect upon the anterior junctional line. No mass or pneumonia. Pleura: Normal. No pleural effusion. Heart and pericardium: Normal size heart with no pericardial effusion. Mediastinum and shai: No mediastinum or hilar adenopathy. Vessels: Normal size aortic and pulmonary artery. No coronary artery calcifications. Chest wall and lower neck: 12 mm nodule lateral LEFT breast. Upper abdomen: Liver cyst LEFT lobe 2.2 x 2.1 cm. No adrenal mass. Osseous structures: No destructive process. CT/CT chest w con* [id number] IMPRESSION: 1. Large stable LEFT upper lobe bulla. 2. No acute pneumonia or mass. 3. Chronic emphysema. 4. No mediastinal or hilar adenopathy. 5. LEFT breast nodule 12 mm. Consider evaluation by diagnostic mammography.
[2022-12-29 15:15] LABS: Blood Urea Nitrogen 6 mg/dL (8-23); Glomerular Filtration Rate 85.1 mL/min (90-130)
[2022-12-29] MEDS: iohexol 350 mg/mL 500 mL Btl (per mL) IV (15:23)
== END 2022-12-29 14:40 | disposition home or self-care (01) ==
LOC: RAD 14:42
PROVIDERS: PCP Internal Medicine; Visit Provider Nurse Practitioner Family
DX: R91.8 Other nonspecific abnormal finding of lung field (principal); J43.9 Emphysema, unspecified; N63.20 Unspecified lump in the left breast, unspecified quadrant
CPT/HCPCS: 71260; 82565; 84520; Q9967

== ENCOUNTER 2023-01-09 09:29 | Emergency (ER) | payer SELFPAY ==
[2023-01-09 09:33] VITALS: PULSE 96; RESP 18; TEMP 36.7; O2SAT 96
[2023-01-09 09:46] VITALS: BP 180/113
--- NOTE | 2023-01-09 09:51 | W.ED.BACK ---
HPI - Back Pain/Injury General: Chief Complaint: Back Pain/Injury Stated Complaint: severe back pain, right side Time Seen by Provider: 01/09/23 09:36 Source: patient Mode of arrival: ambulatory Limitations: no limitations History of Present Illness: Patient is a nice 62-year-old female presents to ED today with a complaint of right-sided back pain that initially began approximately 5 days ago. She thought maybe she had strained something in her back so she went to a walk-in clinic and they prescribed her anti-inflammatories. She states this has not helped with the pain and it continues to burn and feel very sharp and stabbing in nature. She states it starts in her right back and radiates around into her right abdomen. She feels like the skin is very tender to the touch especially if she lays on that side. Patient denies dysuria, urinary frequency or urgency. Denies nausea, vomiting, diarrhea. MD elicited complaint: back pain Onset (ago): day(s) Timing: constant Severity: severe Quality: burning, sharp and stabbing Location: right flank, right lower back and right upper back Radiation: abdomen Exacerbating factors: none Relieving factors: none Associated symptoms: Reports no associated symptoms and abdominal pain; Deny chills, change in bowel habits, dysuria, fatigue, fever(s), nausea, urinary urgency or vomiting Work related injury: No Review of Systems Const: Denies: fever(s), chills, body aches, fatigue or malaise Card: Denies: chest pain Resp: Denies: dyspnea GI: Reports: abdominal pain; Denies: nausea, vomiting, diarrhea or change in bowel habits : Reports: flank pain; Denies: difficulty voiding, dysuria, urinary urgency, urinary hesitancy, vaginal bleeding, vaginal discharge or pelvic pain Musc: Reports: back pain; Denies: neck pain, extremity pain, extremity swelling or joint pain Skin/Breast: Denies: rash Neuro: Denies: headache(s), numbness in extremities, weakness in extremities, sensory changes or dizziness PFS ED PFSH: Medical History (Updated 01/09/23 @ 09:59 by YOCASTA Whyte) Cholelith Colon polyp GERD (gastroesophageal reflux disease) Hemorrhoids Hiatal hernia Periumbilical hernia Ventral hernia Return to surgery office in 10 days Abdominal binder for comfort Surgical History History of ventral hernia repair Hx of cholecystectomy Hx of hemorrhoidectomy Family History Other Cancer Diabetes Heart disease No pertinent family history Denies family history of Anesthesia complication Bleeding disorder Social History Smoking and tobacco status: current every day smoker Alcohol intake: never Substance/Drug Use: never Household members: spouse Marital status: Current occupational status: employed Physical Exam Const: COMMON NORMALS: no acute distress, patient oriented x3, no limitations, healthy appearing, alert and well nourished GENERAL APPEARANCE: cooperative ORIENTATION/CONSCIOUSNESS: Yes awake, Yes oriented to person, Yes oriented to place and Yes oriented to time HENMT: COMMON NORMALS: normocephalic and atraumatic HEAD & SCALP: normal to inspection, normocephalic and atraumatic Neck/C-Spine: COMMON NORMALS: full ROM, no lymphadenopathy and no meningeal signs Chest: COMMONS NORMALS: normal inspection of the chest and normal palpation of entire chest wall Resp: COMMON NORMALS: normal respiratory effort and clear to auscultation bilaterally AUSCULTATION: clear to auscultation bilaterally Cardio: COMMON NORMALS: regular rate and regular rhythm RATE: regular rate RHYTHM: regular rhythm GI: COMMON NORMALS: Normal to inspection, nondistended, normoactive bowel sounds present, Soft to palpation, non-tender, No hepatosplenomegaly present and no masses INSPECTION: Yes normal to inspection PALPATION: Yes Soft to palpation and Yes No hepatosplenomegaly present : COMMON NORMALS: Yes no CVA tenderness BLADDER/KIDNEY EXAM: Yes no CVA tenderness Back/Pelvis: COMMON NORMALS: no CVA tenderness THORACIC SPINE/UPPER BACK: Yes other soft tissue findings (TTP along R lateral back radiating around chest/abdomen ) BACK IMAGE (FEMALE): 1. start of a cluster of erythematous lesions; when questioned she does state yesterday one of the lesions was fluid filled Extremity: COMMON NORMALS: normal to inspection and full ROM GENERAL: Yes normal exam except as noted Neuro: MAYNOR COMA SCALE: document GCS findings Maynor coma scale eye opening: Spontaneous Maynor coma scale verbal response: Orientated Maynor coma scale motor response: Obey commands Maynor coma scale total score: 15 COMMON NORMALS: patient oriented x3 SENSORIUM/ORIENTATION: Yes alert, Yes oriented to person, Yes oriented to place and Yes oriented to time MENINGEAL SIGNS: Yes no meningeal signs Skin: RASHES: rashes noted (R lateral chest/abdomen consistent with shingles) Course Vital Signs: Vital signs: Vital Signs Temperature 98.1 F 01/09/23 09:33 Pulse Rate 87 01/09/23 10:51 Respiratory Rate 16 01/09/23 10:51 Blood Pressure 180/113 01/09/23 09:46 Pulse Oximetry 96 01/09/23 09:33 Oxygen Delivery Me thod Room Air 01/09/23 09:33 MDM - Back Pain/Injury Medical Decision Making Patient's history was suspicious for herpes zoster. On physical exam she was noted to have the start of a cluster of erythematous lesions to her right lateral chest wall consistent with shingles. She will be treated with pain medications, antivirals, steroids. Recommend she follow-up with her primary care provider this week for reevaluation especially if symptoms are worsening. Labs 01/09/23 10:05 01/09/23 10:05 Laboratory Results WBC 6.7 10^3/uL (4.0-10.0) 01/09/23 10:05 RBC 5.54 10^6/uL (4.1-5.3) H 01/09/23 10:05 Hgb 16.0 g/dL (11.5-15.3) H 01/09/23 10:05 Hct 48.4 % (37.0-47.0) H 01/09/23 10:05 MCV 87.4 fl (81-99) 01/09/23 10:05 MCH 28.9 pg (28.0-34.0) 01/09/23 10:05 MCHC 33.1 g/dL (30.0-36.0) 01/09/23 10:05 RDW 13.3 % (12.1-15.1) 01/09/23 10:05 Plt Count 299 10^3/cmm (130-400) 01/09/23 10:05 MPV 9.8 fL (7.4-10.4) 01/09/23 10:05 Neut % (Auto) 67.3 % 01/09/23 10:05 Lymph % (Auto) 17.9 % 01/09/23 10:05 [place] % (Auto) 10.6 % 01/09/23 10:05 Eos % (Auto) 2.8 % 01/09/23 10:05 Baso % (Auto) 1.0 % 01/09/23 10:05 Neut # (Auto) 4.49 10^3/uL (1.8-7.7) 01/09/23 10:05 Lymph # (Auto) 1.2 10^3/uL (0.8-4.8) 01/09/23 10:05 [place] # (Auto) 0.7 10^3/uL (0.2-0.9) 01/09/23 10:05 Eos # (Auto) 0.2 10^3/uL (0.0-0.8) 01/09/23 10:05 Baso # (Auto) 0.1 10^3/uL (0.0-0.1) 01/09/23 10:05 Nucleated RBC % (auto) 0 % 01/09/23 10:05 Nucleated RBCs # 0.0 /100WBC 01/09/23 10:05 Sodium 140 mmol/L (136-145) 01/09/23 10:05 Potassium 4.4 mmol/L (3.5-5.1) 01/09/23 10:05 Chloride 106 mmol/L (98-107) 01/09/23 10:05 Carbon Dioxide 26 mmol/L (22-29) 01/09/23 10:05 Anion Gap 12.4 (5-19) 01/09/23 10:05 BUN 8 mg/dL (8-23) 01/09/23 10:05 Creatinine 0.7 mg/dL (0.5-0.9) 01/09/23 10:05 GFR Calculation 85.1 mL/min (90-130) L 01/09/23 10:05 Glucose 110 mg/dL (65-115) 01/09/23 10:05 Calculated Osmolality 289 mOsm/kg (285-295) 01/09/23 10:05 Calcium 9.0 mg/dL (8.5-10.5) 01/09/23 10:05 Total Bilirubin 0.2 mg/dL (0.15-1.2) 01/09/23 10:05 AST 15 U/L (0-32) 01/09/23 10:05 ALT 12 U/L (0-33) 01/09/23 10:05 Alkaline Phosphatase 90 U/L (35-105) 01/09/23 10:05 Total Protein 6.7 g/dL (6.6-8.7) 01/09/23 10:05 Albumin 4.3 g/dL (3.5-5.2) 01/09/23 10:05 Globulin 2.4 g/dL (1.3-4.6) 01/09/23 10:05 Lipase 26 U/L (13-60) 01/09/23 10:05 Urine Color Yellow (Yellow) 01/09/23 10:00 Urine Appearance Clear (CLEAR) 01/09/23 10:00 Urine pH 8 (5-7) H 01/09/23 10:00 Ur Specific [place] 1.010 (1.005-1.030) 01/09/23 10:00 Urine Protein Neg (Negative) 01/09/23 10:00 Urine Glucose (UA) Norm (Normal) 01/09/23 10:00 Urine Ketones Negative (Negative) 01/09/23 10:00 Urine Blood Neg (Negative) 01/09/23 10:00 Urine Nitrate Negative (Negative) 01/09/23 10:00 Urine Bilirubin Neg (Negative) 01/09/23 10:00 Prot Sulfosalicylic Acd Negative (Negative) 01/09/23 10:00 Urine Urobilinogen Norm mg/dL (Negative) 01/09/23 10:00 Ur Leukocyte Esterase Negative (Negative) 01/09/23 10:00 Discharge Plan Discharge Patient Disposition: Home Clinical Impression: Shingles Qualifiers: Herpes zoster complications: without complications Qualified Code(s): B02.9 - Zoster without complications Condition: Stable Prescriptions: New Valtrex 1 gram tablet 1,000 mg PO Q8H 7 Days Qty: 21 0RF hydrocodone-acetaminophen 5-325 mg tablet 1 tab PO Q6H PRN (Reason: pain) Qty: 14 0RF prednisone 10 mg tablet 10 mg PO DAILY 10 Days Qty: 41 0RF Rx Instructions: Take 6 tabs on days 1-2, 5 tabs on days 3-4, 4 tabs on days 5-6, 3 tabs on day 7-8, 2 tabs on days 9-10, and 1 tab on day 11 No Action acetaminophen [Tylenol] 325 mg capsule 650 mg PO Q6H PRN esomeprazole magnesium [Nexium] 20 mg Capsule,Delayed Release(Dr/Ec) 20 mg PO DAILY [place] 5-325 mg tablet 1 tab PO Q6H PRN (Reason: pain) Qty: 28 0RF ipratropium-albuterol 0.5 mg-3 mg(2.5 mg base)/3 mL solution for nebulization 3 ml inhalation QID Qty: 90 0RF Discharge Orders: Discharge ED (Routine); Ordered 01/09/23 Ordered By: Marine Lugo Referrals: Paulette Parr MD [Primary Care Provider] - Patient Instructions: Shingles (ED), Opioid Safety, Pain Management Coding Level of Care Code ED Sales Center Manager for [facility]
[2023-01-09 10:12] LABS: Add Urine Microscopic? NO; Charge for UA Resulting for Rev
[2023-01-09 10:19] LABS: Basophils # 0.1 10^3/uL (0.0-0.1); Eosinophils # 0.2 10^3/uL (0.0-0.8); Eosinophils % 2.8 %; Hematocrit 48.4 % (37.0-47.0); Lymphocytes # 1.2 10^3/uL (0.8-4.8); Lymphocytes % 17.9 %; Mean Corpuscular HGB Conc 33.1 g/dL (30.0-36.0); Mean Corpuscular Hemoglobin 28.9 pg (28.0-34.0); Mean Corpuscular Volume 87.4 fl (81-99); Mean Platelet Volume 9.8 fL (7.4-10.4); Monocytes # 0.7 10^3/uL (0.2-0.9); Monocytes % 10.6 %; Neutrophils # 4.49 10^3/uL (1.8-7.7); Neutrophils % 67.3 %; Nucleated Red Blood Cells % 0 %; Platelet Count 299 10^3/cmm (130-400); Red Blood Count 5.54 10^6/uL (4.1-5.3); Red Cell Distribution Width 13.3 % (12.1-15.1); White Blood Count 6.7 10^3/uL (4.0-10.0)
[2023-01-09 10:34] LABS: Bilirubin Urine Neg (Negative); Blood Urine Neg (Negative); Glucose Urine UA Norm (Normal); Ketones Urine Negative (Negative); Leukocyte Esterase Urine Negative (Negative); Nitrate Urine Negative (Negative); Protein Urine Neg (Negative); Sulfosalicylic Acid Urine Negative (Negative); Urine Appearance Clear (CLEAR); Urine Color Yellow (Yellow); Urobilinogen Urine Norm (Negative); pH Urine 8 (5-7)
[2023-01-09 10:48] LABS: Alanine Aminotransferase 12 U/L (0-33); Albumin Level 4.3 g/dL (3.5-5.2); Alkaline Phosphatase 90 U/L (35-105); Anion Gap 12.4 (5-19); Aspartate Amino Transferase 15 U/L (0-32); Blood Urea Nitrogen 8 mg/dL (8-23); Carbon Dioxide 26 mmol/L (22-29); Chloride 106 mmol/L (98-107); Globulin 2.4 g/dL (1.3-4.6); Glomerular Filtration Rate 85.1 mL/min (90-130); Glucose 110 mg/dL (65-115); Lipase 26 U/L (13-60); Osmolality Calculated 289 mOsm/kg (285-295); Potassium 4.4 mmol/L (3.5-5.1); Sodium 140 mmol/L (136-145); Total Bilirubin 0.2 mg/dL (0.15-1.2); Total Protein 6.7 g/dL (6.6-8.7)
[2023-01-09 10:51] VITALS: PULSE 87; RESP 16
== END 2023-01-09 10:53 | disposition home or self-care (01) ==
PROVIDERS: Emergency Provider Physician Assistant; PCP Internal Medicine
DX: B02.9 Zoster without complications (principal); F17.210 Nicotine dependence, cigarettes, uncomplicated
CPT/HCPCS: 36415; 80053; 81003; 83690; 85025; 99283

== ENCOUNTER 2023-01-26 10:24 | Outpatient (CLI) | payer SELFPAY ==
[2023-01-26 10:44] VITALS: PULSE 94; RESP 18; O2SAT 97
[2023-01-26] MEDS: albuterol 2.5 mg/3 mL Neb INHALATION (10:44)
[2023-01-26 10:49] VITALS: PULSE 98
== END 2023-01-26 10:25 | disposition home or self-care (01) ==
LOC: RT 10:26
PROVIDERS: PCP Internal Medicine; Visit Provider Nurse Practitioner Family
DX: R07.9 Chest pain, unspecified
CPT/HCPCS: 94060; J7613

== ENCOUNTER 2024-01-18 10:15 | Outpatient (CLI) | payer SELFPAY ==
--- NOTE | 2024-01-18 10:21 | XR_ITS ---
WS: [id number] Examination: XR chest 2V* [id number] Reason for Exam: COUGH Date: January 18, 2024 Comparison: November 17, 2022 Findings: The heart is not enlarged. The mediastinum is not widened. The lungs are hyperinflated with chronic change. A suspected anterior bulla is noted on the left There is no failure or effusion. I see no dense consolidative change XR/XR chest 2V* [id number] Impression: There is no acute lung process. Chronic changes are present.
== END 2024-01-18 10:16 | disposition home or self-care (01) ==
PROVIDERS: PCP Internal Medicine; Visit Provider Internal Medicine
DX: J98.4 Other disorders of lung (principal); R05.8 Other specified cough
CPT/HCPCS: 71046

== ENCOUNTER → 2024-11-26 10:09 | Outpatient (BNVA) | payer SELFPAY | PROVIDERS: PCP Internal Medicine; Visit Provider Emergency Medicine | DX: R39.9 Unspecified symptoms and signs involving the genitourinary system (principal) | CPT/HCPCS: 81000; 87086 ==